=== PATIENT | female | born 1960 | race Caucasian/White ===

== ENCOUNTER 2016-08-17 15:15 | Inpatient (IN) | payer BC, OTHER ==
[~2016-08-17] VITALS: Ht 167.6 cm; Wt 72.4 kg
[2016-08-17 15:17] VITALS: BP 160/92; PULSE 88; RESP 20; TEMP 98; O2SAT 97
[2016-08-17] MEDS ORDERED: PROT40TA PO (15:37)
[2016-08-17] MEDS ORDERED: DICL1CAP4 PO (15:37)
[2016-08-17] MEDS ORDERED: MULTTAB67 PO (15:37)
[2016-08-17] MEDS ORDERED: [UNRECOGNIZED DRUG - REMARK] (15:37)
[2016-08-17] MEDS ORDERED: MORPHINE SULFATE 4 MG/ML INJ IV PUSH ONE (15:45)
[2016-08-17] MEDS ORDERED: KETOROLAC TROMETHAMINE 30 MG/ML (IVP) VIAL IV PUSH ONE (15:45)
[2016-08-17] MEDS ORDERED: CLINDAMYCIN INJ 600 MG in SODIUM CHLORIDE 0.9% INJ 100 ML IV ONE (15:45)
[2016-08-17] MEDS ORDERED: SULFAMETHOXAZOLE-TRIMETHOPRIM DS 800-160 MG TAB PO ONE (15:45)
[2016-08-17] MEDS ORDERED: ONDANSETRON HCL 4 MG/2 ML VIAL IV PUSH ONE (15:45)
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
[2016-08-17 15:56] VITALS: BP 142/76; PULSE 80; RESP 18; O2SAT 100
--- NOTE | 2016-08-17 16:17 | RADRPT ---
EXAM DATE/TIME: 08/17/2016 15:56 [facility] COMPARISON: No previous studies available for comparison. INDICATIONS : Left thumb pain from cat bit. MEDICAL HISTORY : None. SURGICAL HISTORY : None. ENCOUNTER: Initial ACUITY: 2 days PAIN SCORE: 5/10 LOCATION: Bilateral proximal left thumb. FINDINGS: Examination of the first digit of the left hand demonstrates no evidence of fracture or dislocation. No radiopaque foreign bodies are seen. The soft tissues are intact. CONCLUSION: Negative exam. Deejay Edmonds MD on August 17, 2016 at 16:15 Board Certified Radiologist. This report was verified electronically.
[2016-08-17 16:45] LABS: AUTOMATED NEUTROPHIL # 5.1 TH/MM3 (1.8-7.7); BASOPHIL % 0.2 % (0.0-2.0); EOSINOPHIL # 0.1 TH/MM3 (0-0.4); HEMO FLAGS DIFF FINAL; LYMPH % 30.1 % (9.0-44.0); LYMPHOCYTE # 2.5 TH/MM3 (1.0-4.8); MEAN CORPUSCULAR HEMOGLOBIN 30.7 PG (27.0-34.0); MEAN CORPUSCULAR HGB CONC 34.9 % (32.0-36.0); MONO % 6.2 % (0.0-8.0); NEUT % 62.5 % (16.0-70.0); PLATELET COUNT 230 TH/MM3 (150-450); RED BLOOD COUNT 4.09 MIL/MM3 (4.00-5.30); RED CELL DISTRIBUTION WIDTH 14.3 % (11.6-17.2); WHITE BLOOD COUNT 8.2 TH/MM3 (4.0-11.0)
[2016-08-17 17:08] LABS: BICARBONATE 24.7 MEQ/L (21.0-32.0); POTASSIUM 3.7 MEQ/L (3.5-5.1)
[2016-08-17] MEDS ORDERED: BUSP1TAB PO (17:09)
[2016-08-17] MEDS ORDERED: ESTR0.5T PO (17:18)
[2016-08-17] MEDS ORDERED: TEMAZEPAM 15 MG CAP PO PRN (17:30)
[2016-08-17] MEDS ORDERED: NALOXONE HCL 0.4 MG/ML AMP IV PRN (17:30)
[2016-08-17] MEDS ORDERED: ONDANSETRON HCL 4 MG/2 ML VIAL IVP PRN (17:30)
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
[2016-08-17] MEDS: LACTATED RINGER'S 1000 ML INJ 1,000 ML IV SCH (18:17)
[2016-08-17] MEDS: HEPARIN SODIUM - SQ 10,000 UNITS/ML VIAL SQ SCH (18:20)
[2016-08-17 18:23] VITALS: BP 156/81; PULSE 68; RESP 18; O2SAT 95
[2016-08-17 18:26] VITALS: BP 130/65; PULSE 67; RESP 18; O2SAT 100
[2016-08-17 19:25] VITALS: BP 111/65; PULSE 73; RESP 19; TEMP 98.2; O2SAT 98
[2016-08-17] MEDS: busPIRone HCL 5 MG TAB PO SCH (20:53)
[2016-08-17] MEDS: MORPHINE SULFATE 4 MG/ML INJ IV PUSH PRN (20:55)
[2016-08-17 23:34] VITALS: BP 94/50; PULSE 71; RESP 19; TEMP 98.2; O2SAT 96
[2016-08-18] MEDS: CLINDAMYCIN INJ 600 MG in SODIUM CHLORIDE 0.9% INJ 100 ML IV SCH ×3 (00:10→16:25)
--- NOTE | 2016-08-18 00:19 | PD.CONS ---
HPI Service [facility] Consult Requested By Primary Care Physician Juliana Barnes M.D. Admission Diagnosis tenosynovitis left thumb, cellulitis, infected cat bite Diagnoses: History of Present Illness 55yF cat bites to bilateral thumbs, improving since admission. Left thumb worse than right. Patient LHD Past Family Social History Allergies: Coded Allergies: Penicillin (Verified Allergy, Severe, 08/17/16) Active Ordered Medications Current Medications Medications (Trade) Dose Ordered Sig/Cain Route Start Time Stop Time Status Last Admin (Lr 1000 ml Inj) 1,000 ml @ 70 mls/hr [id number] IV 08/17/16 18:00 08/17/16 18:17 (Zofran Inj) 4 mg Q6H PRN IVP 08/17/16 17:30 (Restoril) 15 mg HS PRN PO 08/17/16 17:30 (Heparin Inj) 5,000 units Q12H SQ 08/17/16 18:00 08/17/16 18:20 Naloxone HCl 0.4 mg 0.4 mg UNSCH PRN IV 08/17/16 17:30 (Cleocin Inj/NS Inj) 104 ml @ 208 mls/hr Q8H IV 08/18/16 00:00 08/18/16 00:10 (Morphine Inj) 4 mg Q3H PRN IV PUSH 08/17/16 17:30 08/17/16 20:55 (Buspar) 7.5 mg HS PO 08/17/16 21:00 08/17/16 20:53 (Protonix) 40 mg DAILY PO 08/18/16 09:00 Patient Own Medication PT OWN MED: (Diclofe... DAILY PO 08/18/16 09:00 Future Hold Reported Meds & Active Scripts Active Reported Estradiol 0.5 Mg Tab 0.5 Mg PO DAILY Buspirone (Buspirone HCl) 7.5 Mg Tab 7.5 Mg PO HS [hormone pills] Zorvolex (Diclofenac) 35 Mg Cap 35 Mg PO DAILY Multiple Vitamin 1 Tab 1 Tab PO DAILY Protonix (Pantoprazole Sodium) 40 Mg Tab 40 Mg PO DAILY Physical Exam Vital Signs Vital Signs Date Time Temp Pulse Resp B/P Pulse Ox O2 Delivery O2 Flow Rate FiO2 08/17/16 23:34 98.2 71 19 94/50 96 08/17/16 19:25 98.2 73 19 111/65 98 08/17/16 18:26 67 18 130/65 100 Room Air 08/17/16 15:56 80 18 142/76 100 Room Air 08/17/16 15:39 18 08/17/16 15:17 98.0 88 20 160/92 97 Room Air Laboratory Laboratory Tests Test 08/17/16 15:45 White Blood Count 8.2 Red Blood Count 4.09 Hemoglobin 12.6 Hematocrit 36.0 Mean Corpuscular Volume 88.0 Mean Corpuscular Hemoglobin 30.7 Mean Corpuscular Hemoglobin 34.9 Concent Red Cell Distribution Width 14.3 Platelet Count 230 Mean Platelet Volume 8.0 Neutrophils (%) (Auto) 62.5 Lymphocytes (%) (Auto) 30.1 Monocytes (%) (Auto) 6.2 Eosinophils (%) (Auto) 1.0 Basophils (%) (Auto) 0.2 Neutrophils # (Auto) 5.1 Lymphocytes # (Auto) 2.5 Monocytes # (Auto) 0.5 Eosinophils # (Auto) 0.1 Basophils # (Auto) 0.0 CBC Comment DIFF FINAL Differential Comment Sodium Level 139 Potassium Level 3.7 Chloride Level 105 Carbon Dioxide Level 24.7 Anion Gap 9 Blood Urea Nitrogen 13 Creatinine 0.84 Estimat Glomerular Filtration 71 Rate Random Glucose 93 Calcium Level 8.7 Date/Time Procedure Status Source Growth 08/17/16 15:54 Aerobic Blood Culture Received Blood Peripheral Pending 08/17/16 15:54 Anaerobic Blood Culture Received Blood Peripheral Pending Result Diagram: 08/17/16 1545 08/17/16 1545 Assessment & Plan Assessment and Plan 55yF cat bite bilateral thumbs, see dictated consult note for full details -Recommend admission for IV Ab, close followup -May require I&D tomorrow if symptoms worsen, at this time no sign of flexor or extensor tenosynovitis Mei Wilde MD Aug 18, 2016 00:19
[2016-08-18 03:40] VITALS: BP 109/60; PULSE 68; RESP 19; TEMP 98; O2SAT 96
--- NOTE | 2016-08-18 04:16 | MB ---
cc: MEI WILDE DATE OF CONSULTATION: 08/17/2016 REASON FOR CONSULTATION Cat bite bilateral thumbs. HISTORY OF PRESENT ILLNESS Selena Blackwell is a pleasant bit 55-year-old left-hand dominant female who was bitten by her cat yesterday on both the distal phalanx of the right thumb and the middle phalanx of the left thumb. The patient had to come for her cat and presented to the urgent care earlier today where she was transferred to the emergency room. I was called for difficulty flexing the finger. At the time of evaluation, the patient reports significant improvement since earlier today. She has been started on IV antibiotics. She denies any paresthesias on either hand. She does have erythema over the left thumb. She denies any prior history of problems with either hand. PAST MEDICAL HISTORY Osteoarthritis, GERD, anxiety. PAST SURGICAL HISTORY: Mastoidectomy, tonsillectomy, . MEDICATIONS 1. Estradiol 2. Buspirone. 3. Protonix. ALLERGIES Penicillin. PHYSICAL EXAMINATION GENERAL: The patient is alert and oriented. VITAL SIGNS: Temperature is 98. Extremities: The right hand shows one puncture wound over the volar aspect of the right thumb. The patient has full range of motion of the right thumb with minimal pain, no significant erythema. Sensation intact in the radial and ulnar side. Less than two second capillary refill. Examination of the left thumb shows mild to moderate erythema over the left thumb. No tenderness along the flexor tendon sheath. There are multiple cat bites over the dorsal and volar aspect of the thumb. The patient is able to flex and extend the thumb without significant difficulty at both IP and MP joints. Sensation is intact on the radial ulnar side. Less than two second capillary refill. LABORATORY DATA: Labs show white count 8.2. X-RAYS X-ray of the hand shows no evidence of fracture-dislocation. ASSESSMENT/PLAN The patient is a 55-year-old healthy female with a cat bite to bilateral thumbs left worse than right. At this time the patient has good range of motion. I recommend admission for IV antibiotics and observation. She may require surgical debridement. Will continue to follow on the IV antibiotics. Mei Wilde MD /CORY /12:15 AM /4:02 AM MTDD
[2016-08-18] MEDS: HEPARIN SODIUM - SQ 10,000 UNITS/ML VIAL SQ SCH ×2 (05:40→17:16)
[2016-08-18] MEDS: MORPHINE SULFATE 4 MG/ML INJ IV PUSH PRN ×2 (06:12→10:21)
[2016-08-18 07:41] VITALS: BP 117/67; PULSE 67; RESP 18; TEMP 98.4; O2SAT 99
--- NOTE | 2016-08-18 08:17 | HHI.PR ---
Subjective Subjective Remarks left thumb swelling present, slightly improved, some erythema able to flex thumb, pain over volar surface no fever c/o headache no cp no sob has been NPO Review of Systems Constitutional Constitutional Remarks 12 point ROS completed, negative except as noted above Vitals/Results Vital Signs Vital Signs Date Time Temp Pulse Resp B/P Pulse Ox O2 Delivery O2 Flow Rate FiO2 08/18/16 07:41 98.4 67 18 117/67 99 08/18/16 03:40 98.0 68 19 109/60 96 08/17/16 23:34 98.2 71 19 94/50 96 08/17/16 19:25 98.2 73 19 111/65 98 08/17/16 18:26 67 18 130/65 100 Room Air 08/17/16 15:56 80 18 142/76 100 Room Air 08/17/16 15:39 18 08/17/16 15:17 98.0 88 20 160/92 97 Room Air CBC/BMP: 08/17/16 1545 08/17/16 1545 Lab Results Laboratory Tests Test 08/17/16 15:45 White Blood Count 8.2 TH/MM3 Red Blood Count 4.09 MIL/MM3 Hemoglobin 12.6 GM/DL Hematocrit 36.0 % Mean Corpuscular Volume 88.0 FL Mean Corpuscular Hemoglobin 30.7 PG Mean Corpuscular Hemoglobin 34.9 % Concent Red Cell Distribution Width 14.3 % Platelet Count 230 TH/MM3 Mean Platelet Volume 8.0 FL Neutrophils (%) (Auto) 62.5 % Lymphocytes (%) (Auto) 30.1 % Monocytes (%) (Auto) 6.2 % Eosinophils (%) (Auto) 1.0 % Basophils (%) (Auto) 0.2 % Neutrophils # (Auto) 5.1 TH/MM3 Lymphocytes # (Auto) 2.5 TH/MM3 Monocytes # (Auto) 0.5 TH/MM3 Eosinophils # (Auto) 0.1 TH/MM3 Basophils # (Auto) 0.0 TH/MM3 CBC Comment DIFF FINAL Differential Comment Sodium Level 139 MEQ/L Potassium Level 3.7 MEQ/L Chloride Level 105 MEQ/L Carbon Dioxide Level 24.7 MEQ/L Anion Gap 9 MEQ/L Blood Urea Nitrogen 13 MG/DL Creatinine 0.84 MG/DL Estimat Glomerular Filtration 71 ML/MIN Rate Random Glucose 93 MG/DL Calcium Level 8.7 MG/DL Microbiology Microbiology 08/17/16 Aerobic Blood Culture, Received Pending 08/17/16 Anaerobic Blood Culture, Received Pending 08/17/16 Aerobic Blood Culture, Received Pending 08/17/16 Anaerobic Blood Culture, Received Pending Physical Exam General General Appearance: Well Developed, Well Nourished, No Acute Distress, Comfortable Ears & Nose Ears & Nose Exam: Nasal Mucosa [place] Throat Throat Exam: Oral Mucosa [place] & Moist Neck Neck Exam: Neck Supple, Trachea Midline Pulmonary Resp Exam: Clear Bilaterally, No Distress Cardiology CV Exam: Regular, Good Perfusion Gastrointestinal/Abdomen GI Exam: Soft, Non-Tender, Bowel Sounds Present, Non-Distended Musculoskeletal MS Remarks left thumb swelling, redness, puncture wounds to volar and palmar surface puncture wound right thumb, minimally red Integumentary Skin Exam: Warm, Dry Extremeties Extremities Exam: No Edema, Pedal Pulses Palpable Neurologic Neuro Exam: Alert, Awake, Oriented, Speech Clear, Moving All Extremities, No Focal Deficits Psychiatric Psych Exam: Appropriate Responses VTE Prophylaxis VTE Prophylaxis Device: SCDs Assessment/Plan Problem List: (1) Cellulitis (2) Tenosynovitis (3) Cat bite of finger (4) Anxiety Assessment/Plan 55 year old female presented to ED with cat bit to left and right thumb yesterday, today has increased pain, swelling and decrease ROM. Admitted for cellulitis, possible tenosynovitis. -Continue antibiotics -Dr. Wilde has been consulted, recommends to keep NPO and possible I/D today -Pain management -Keep left hand elevated -Continue IVF -Monitor WBC, cultures Anxiety, on Buspar -Continue with Buspar SCDs for DVT prophylaxis continue with present treatment for possible surgery today, f/u after procedure D/W RN D/W pt D/W Dr. Snider This patient was seen by myself and Dr. Snider, this note is written on his behalf. Problem Qualifiers (1) Cellulitis: Qualified Code: L03.012 - Cellulitis of finger of left hand (2) Cat bite of finger: Qualified Code: S61.259A - Cat bite of finger, initial encounter Tatiana Rolle Aug 18, 2016 08:17
[2016-08-18 08:25] LABS: BICARBONATE 25.8 MEQ/L (21.0-32.0); POTASSIUM 4.3 MEQ/L (3.5-5.1)
[2016-08-18 08:32] LABS: AUTOMATED NEUTROPHIL # 2.3 TH/MM3 (1.8-7.7); BASOPHIL % 0.3 % (0.0-2.0); EOSINOPHIL # 0.1 TH/MM3 (0-0.4); EOSINOPHIL % 2.5 % (0.0-4.0); HEMATOCRIT 36.2 % (35.0-46.0); HEMO FLAGS DIFF FINAL; LYMPH % 43.9 % (9.0-44.0); LYMPHOCYTE # 2.1 TH/MM3 (1.0-4.8); MEAN CELL VOLUME 89.8 FL (80.0-100.0); MEAN CORPUSCULAR HGB CONC 34.5 % (32.0-36.0); MONO % 6.5 % (0.0-8.0); NEUT % 46.8 % (16.0-70.0); PLATELET COUNT 203 TH/MM3 (150-450); RED BLOOD COUNT 4.03 MIL/MM3 (4.00-5.30); RED CELL DISTRIBUTION WIDTH 14.5 % (11.6-17.2); WHITE BLOOD COUNT 4.9 TH/MM3 (4.0-11.0)
[2016-08-18] MEDS ORDERED: DICLOFENAC 35 MG PO SCH (09:00)
[2016-08-18] MEDS: PANTOPRAZOLE SOD 40 MG DELAYED RELEASE TAB PO SCH (09:00)
[2016-08-18 09:07] LABS: WESTERGREN SEDIMENTATION RATE 9 mm/hr (0-30)
[2016-08-18] MEDS: LACTATED RINGER'S 1000 ML INJ 1,000 ML IV SCH (10:37)
[2016-08-18 13:23] VITALS: BP 135/79; PULSE 77; RESP 18; TEMP 98; O2SAT 100
[2016-08-18 16:00] VITALS: BP 136/69; PULSE 75; RESP 18; TEMP 95.8; O2SAT 100
[2016-08-18] MEDS ORDERED: MAGNESIUM CITRATE SOLN 300 ML BTL PO ONE (16:45)
[2016-08-18] MEDS ORDERED: MAGNESIUM HYDROXIDE SUSP 30 ML CUP PO PRN (17:00)
[2016-08-18 20:00] VITALS: BP 126/80; PULSE 80; RESP 20; TEMP 98.2; O2SAT 96
--- NOTE | 2016-08-18 20:18 | PD.ORT.PN ---
Subjective Subjective Remarks Patient reports improving pain bilateral thumbs. Denies paresthesias. Reports headache. Objective Vitals Vital Signs Date Time Temp Pulse Resp B/P Pulse Ox O2 Delivery O2 Flow Rate FiO2 08/18/16 16:00 95.8 75 18 136/69 100 08/18/16 13:23 98.0 77 18 135/79 100 08/18/16 10:26 20 08/18/16 07:41 98.4 67 18 117/67 99 08/18/16 03:40 98.0 68 19 109/60 96 08/17/16 23:34 98.2 71 19 94/50 96 Result Diagram: 08/18/16 0730 08/18/16 0730 Objective Remarks mild erythema bilateral thumbs. minimal pain with passive ROM bilateral thumbs. able to actively extend and flex thumbs at IP and MP joints. minimal pain along flexor tendon sheaths. sitlt m/u/r, <2 sec capillary refill Assessment & Plan Assessment and Plan 55yF cat bite bilateral thumbs with improvement on IV Ab -ESR 9, CRP 0.58 both minimally elevated -Recommend regular diet, NPO at midnight, continued observation on IV Ab, possible dc on oral Ab in next several days -No indication for surgical intervention at this time but will continue to follow closely Mei Wilde MD Aug 18, 2016 20:18
[2016-08-18] MEDS: busPIRone HCL 5 MG TAB PO SCH (21:09)
[2016-08-18] MEDS: ACETAMINOPHEN 325 MG TAB PO PRN (22:38)
[2016-08-19] VITALS: BP 102/63; PULSE 67; RESP 20; TEMP 97.4; O2SAT 96
[2016-08-19] MEDS: HEPARIN SODIUM - SQ 10,000 UNITS/ML VIAL SQ SCH ×2 (06:14→15:47)
[2016-08-19] MEDS: ACETAMINOPHEN 325 MG TAB PO PRN ×2 (06:15→14:07)
[2016-08-19 08:00] VITALS: BP 134/74; PULSE 69; RESP 16; TEMP 97.1; O2SAT 99
[2016-08-19] MEDS: CLINDAMYCIN INJ 600 MG in SODIUM CHLORIDE 0.9% INJ 100 ML IV SCH ×4 (08:12→15:45)
[2016-08-19] MEDS: PANTOPRAZOLE SOD 40 MG DELAYED RELEASE TAB PO SCH (08:12)
--- NOTE | 2016-08-19 10:52 | HHI.PR ---
Subjective Interval History Alert, oriented, feeling much better, much less swelling in her hands Review of Systems Allergic/Immunologic Allergic/Immunologic/Remarks Very mild hand pain bilaterally, 10 systems reviewed and otherwise negative Vitals/Results Intake & Output 08/18/16 08/18/16 08/19/16 15:00 23:00 07:00 Intake Total 604 ml 908 ml Balance 604 ml 908 ml Intake Oral 240 ml 240 ml IV Total 364 ml 668 ml # Voids 1 3 # Bowel Movements 0 0 Vital Signs Vital Signs Date Time Temp Pulse Resp B/P Pulse Ox O2 Delivery O2 Flow Rate FiO2 08/19/16 08:00 97.1 69 16 134/74 99 08/19/16 00:00 97.4 67 20 102/63 96 08/18/16 20:00 98.2 80 20 126/80 96 08/18/16 16:00 95.8 75 18 136/69 100 08/18/16 13:23 98.0 77 18 135/79 100 CBC/BMP: 08/18/16 0730 08/18/16 0730 Physical Exam General General Appearance: Well Developed, Well Nourished, No Acute Distress, Comfortable Ears & Nose Ears & Nose Exam: Nasal Mucosa [place] Throat Throat Exam: Oral Mucosa [place] & Moist Neck Neck Exam: Neck Supple, Trachea Midline Pulmonary Resp Exam: Clear Bilaterally, No Distress Cardiology CV Exam: Regular, Good Perfusion Gastrointestinal/Abdomen GI Exam: Soft, Non-Tender, Bowel Sounds Present, Non-Distended Integumentary Skin Exam: Warm, Dry Extremeties Extremities Exam: No Edema, Pedal Pulses Palpable Neurologic Neuro Exam: Alert, Awake, Oriented, Speech Clear, Moving All Extremities, No Focal Deficits Psychiatric Psych Exam: Appropriate Responses VTE Prophylaxis VTE Prophylaxis Device: SCDs Assessment/Plan Problem List: (1) Cellulitis (2) Tenosynovitis (3) Cat bite of finger (4) Anxiety Assessment/Plan assessment Bilateral thumb cellulitis Looking better today History of Bite Management Continue antibiotics Hand surgery following Possible discharge tomorrow Discussed with patient Discussed with nurse Problem Qualifiers (1) Cellulitis: Qualified Code: L03.012 - Cellulitis of finger of left hand (2) Cat bite of finger: Qualified Code: S61.259A - Cat bite of finger, initial encounter Thanh Snider MD Aug 19, 2016 10:51
[2016-08-19 12:00] VITALS: BP 127/87; PULSE 75; RESP 17; TEMP 98.3; O2SAT 98
[2016-08-19] MEDS ORDERED: NORC5TAB PO (14:52)
[2016-08-19] MEDS: LACTATED RINGER'S 1000 ML INJ 1,000 ML IV SCH ×2 (15:47)
[2016-08-19 16:00] VITALS: BP 133/84; PULSE 80; RESP 16; TEMP 97.1; O2SAT 99
[2016-08-19 20:00] VITALS: BP 127/80; PULSE 69; RESP 20; TEMP 97.2; O2SAT 97
[2016-08-19] MEDS: busPIRone HCL 5 MG TAB PO SCH (22:29)
--- NOTE | 2016-08-19 22:56 | PD.ORT.PN ---
Subjective Subjective Remarks Patient reports minimal pain bilateral thumbs. Denies paresthesias. Objective Vitals Vital Signs Date Time Temp Pulse Resp B/P Pulse Ox O2 Delivery O2 Flow Rate FiO2 08/19/16 20:00 97.2 69 20 127/80 97 08/19/16 16:00 97.1 80 16 133/84 99 08/19/16 12:00 98.3 75 17 127/87 98 08/19/16 08:00 97.1 69 16 134/74 99 08/19/16 00:00 97.4 67 20 102/63 96 I/O 08/18/16 08/18/16 08/18/16 08/19/16 08/19/16 08/19/16 07:00 15:00 23:00 07:00 15:00 23:00 Intake Total 604 ml 908 ml 440 ml 720 ml Balance 604 ml 908 ml 440 ml 720 ml Intake Oral 240 ml 240 ml 0 ml 720 ml IV Total 364 ml 668 ml 440 ml # Voids 1 3 4 2 # Bowel Movements 0 0 1 Result Diagram: 08/18/16 0730 08/18/16 0730 Objective Remarks mild erythema bilateral thumbs. minimal pain with passive ROM bilateral thumbs. able to actively extend and flex thumbs at IP and MP joints. no pain along flexor tendon sheaths. sitlt m/u/r, <2 sec capillary refill Assessment & Plan Assessment and Plan 55yF cat bite bilateral thumbs with improvement on IV Ab -No indication for surgical intervention at this time -Recommend patient stay overnight for IV Ab then likely discharge in AM on on oral Augmentin -Followup in [facility] 08/22/16, Mei Wilde MD Aug 19, 2016 22:56
[2016-08-20] VITALS: BP 105/57; PULSE 75; RESP 20; TEMP 97.7; O2SAT 97
[2016-08-20] MEDS: CLINDAMYCIN INJ 600 MG in SODIUM CHLORIDE 0.9% INJ 100 ML IV SCH ×2 (00:17→09:50)
[2016-08-20] MEDS: LACTATED RINGER'S 1000 ML INJ 1,000 ML IV SCH (05:33)
[2016-08-20] MEDS: HEPARIN SODIUM - SQ 10,000 UNITS/ML VIAL SQ SCH (06:00)
[2016-08-20 08:00] VITALS: BP 126/62; PULSE 78; RESP 16; TEMP 98.4; O2SAT 96
[2016-08-20] MEDS: PANTOPRAZOLE SOD 40 MG DELAYED RELEASE TAB PO SCH (09:50)
[2016-08-20 12:00] VITALS: BP 130/72; PULSE 97; RESP 16; TEMP 96.2; O2SAT 96
[2016-08-20] MEDS ORDERED: CLIN1CAP6 PO (14:13)
--- NOTE | 2016-08-20 22:35 | HHI.PR ---
Subjective Interval History Alert, oriented, feeling much better, little pain in her hands, swelling has resolved Review of Systems Constitutional Constitutional Remarks 10 systems reviewed and otherwise negative Allergic/Immunologic Allergic/Immunologic/Remarks Very mild hand pain bilaterally, 10 systems reviewed and otherwise negative Vitals/Results Intake & Output 08/19/16 08/19/16 08/20/16 15:00 23:00 07:00 Intake Total 440 ml 720 ml 1038 ml Output Total 1800 ml Balance 440 ml 720 ml -762 ml Intake Oral 0 ml 720 ml 480 ml IV Total 440 ml 558 ml Output Urine Total 1800 ml # Voids 4 2 # Bowel Movements 1 Vital Signs Vital Signs Date Time Temp Pulse Resp B/P Pulse Ox O2 Delivery O2 Flow Rate FiO2 08/20/16 12:00 96.2 97 16 130/72 96 08/20/16 08:00 98.4 78 16 126/62 96 08/20/16 00:00 97.7 75 20 105/57 97 CBC/BMP: 08/18/16 0730 08/18/16 0730 Physical Exam General General Appearance: Well Developed, Well Nourished, No Acute Distress, Comfortable Ears & Nose Ears & Nose Exam: Nasal Mucosa [place] Throat Throat Exam: Oral Mucosa [place] & Moist Neck Neck Exam: Neck Supple, Trachea Midline Pulmonary Resp Exam: Clear Bilaterally, No Distress Cardiology CV Exam: Regular, Good Perfusion Gastrointestinal/Abdomen GI Exam: Soft, Non-Tender, Bowel Sounds Present, Non-Distended Integumentary Skin Exam: Warm, Dry Skin Remarks Minor residual teeth jeana on her hands especially both thumbs from Bite, cellulitis, mostly resolved Extremeties Extremities Exam: No Edema, Pedal Pulses Palpable Neurologic Neuro Exam: Alert, Awake, Oriented, Speech Clear, Moving All Extremities, No Focal Deficits Psychiatric Psych Exam: Appropriate Responses VTE Prophylaxis VTE Prophylaxis Device: SCDs Assessment/Plan Problem List: (1) Cellulitis (2) Tenosynovitis (3) Cat bite of finger (4) Anxiety Assessment/Plan assessment Bilateral thumb cellulitis Looking better today, Almost resolved History of cat Bite Management Continue antibiotics By mouth Hand surgery following discharge Home today Discussed with patient Discussed with nurse Problem Qualifiers (1) Cellulitis: Qualified Code: L03.012 - Cellulitis of finger of left hand (2) Cat bite of finger: Qualified Code: S61.259A - Cat bite of finger, initial encounter Thanh Snider MD Aug 20, 2016 22:35
--- NOTE | 2016-09-20 18:08 | HHI.DS ---
Discharge Summary Admission Date Aug 17, 2016 at 17:23 Discharge Date: Aug 20, 2016 Admitting Diagnosis tenosynovitis left thumb, cellulitis, infected cat bite (1) Cellulitis Diagnosis: Principal (2) Tenosynovitis Diagnosis: Principal (3) Cat bite of finger Diagnosis: Principal (4) Anxiety Diagnosis: Secondary Brief History This was a 55-year-old female that presents to the ED for evaluation of cat bite. Day before admission, the patient she was trying to comfort her cat who unfortunately she hit her car and was dying. The cat apparently got very upset and bit her on her right and left thumb. Per patient the cat clamped down on the left thumb and she did not let go for at least a couple of minutes until she was able to get them out out. Per patient she didn't really have much discomfort but overnight she noticed that she was having more pain when she moved. Day of admission, she noted swelling and was having difficulty with flexion of the left thumb. She could not flex at the PIP level but it has improved since she arrived here. She did have bite guzman to both thumbs with erythema. Patient stated that she was seen at the urgent care and was given a tetanus booster and told to come here for evaluation. She did have an allergy to penicillin. She was not concerned for rabies as this was her own cat. Imaging Last Impressions Finger X-Ray 08/17/16 0000 Signed Impressions: Service Date/Time: Wednesday, August 17, 2016 15:56 - CONCLUSION: Negative exam. Deejay Edmonds MD PE at Discharge General Appearance: Well Developed, Well Nourished, No Acute Distress, Comfortable Ears & Nose Ears & Nose Exam: Nasal Mucosa [place] Throat Throat Exam: Oral Mucosa [place] & Moist Neck Neck Exam: Neck Supple, Trachea Midline Pulmonary Resp Exam: Clear Bilaterally, No Distress Cardiology CV Exam: Regular, Good Perfusion Gastrointestinal/Abdomen GI Exam: Soft, Non-Tender, Bowel Sounds Present, Non-Distended Integumentary Skin Exam: Warm, Dry Skin Remarks Minor residual teeth jeana on her hands especially both thumbs from Bite, cellulitis, mostly resolved Extremeties Extremities Exam: No Edema, Pedal Pulses Palpable Neurologic Neuro Exam: Alert, Awake, Oriented, Speech Clear, Moving All Extremities, No Focal Deficits Psychiatric Psych Exam: Appropriate Responses VTE Prophylaxis VTE Prophylaxis Device: SCDs Hospital Course Pt. was evaluated in the ED, was started on antibiotics, Clindamycin and PO Bactrim due to PCN allergy. Dr. Wilde was consulted and evaluated pt. Pt NPO for possible surgical procedure later today. Pt. is comfortable, she received Morphine and her pain is down. She was in relative good health, no history of CAD, DM, HTN. Laboratory work up is unremarkable. Xray of finger is normal. Pt. was admitted for further evaluation and treatment. These are the diagnosis used for this visit. (1) Cellulitis (2) Tenosynovitis (3) Cat bite of finger (4) Anxiety -Continue antibiotics clindamycin ordered on admission -Dr. Wilde has been consulted, recommends to keep NPO and possible I/D today Orders on admission, -Pain management -Keep left hand elevated -Continue IVF for hydration -Monitor WBC, cultures Anxiety, on Buspar -Continue with Busparthroughout stay SCDs for DVT prophylaxis continue with present treatment After seeing Dr. Wilde, patient was stablized and discharged to follow up in his office. Continue antibiotics By mouth Hand surgery following her discharge. discharge Home today stable Discussed with patient plan of care Discussed with nurse caring for patient Pt Condition on Discharge: Stable Discharge Disposition: Discharge Home Discharge Instructions DIET: Follow Instructions for: As Tolerated, No Restrictions Activities you can perform: Regular-No Restrictions Follow up Referrals: Hand Surgery - 2 Days with Mei Wilde MD New Medications: Clindamycin (Clindamycin) 300 Mg Cap 600 MG PO Q8H Infection #15 Ref 0 CAP Hydrocodone-Acetaminophen ([place]) 5-325 mg Tab 1 TAB PO Q4H PRN PAIN #20 Ref 0 TAB Continued Medications: Buspirone (Buspirone) 7.5 Mg Tab 7.5 MG PO HS Anxiety Ref 0 TAB Diclofenac (Zorvolex) 35 Mg Cap 35 MG PO DAILY Pain Management Ref 0 CAP Estradiol (Estradiol) 0.5 Mg Tab 0.5 MG PO DAILY Estrogen Supplements #30 Ref 0 TAB Multiple Vitamin (Multiple Vitamin) 1 Tab 1 TAB PO DAILY Nutritional Supplement Ref 0 TAB Pantoprazole (Protonix) 40 Mg Tab 40 MG PO DAILY Reflux #30 Ref 0 TAB ([hormone pills]) Lyla Frazier Sep 20, 2016 18:08
--- NOTE | 2016-09-20 18:08 | HHI.DS ---
Discharge Summary Admission Date Aug 17, 2016 at 17:23 Admitting Diagnosis tenosynovitis left thumb, cellulitis, infected cat bite (1) Cellulitis Diagnosis: Principal (2) Tenosynovitis Diagnosis: Principal (3) Cat bite of finger Diagnosis: Principal (4) Anxiety Diagnosis: Secondary Brief History This was a 55-year-old female that presents to the ED for evaluation of cat bite. Day before admission, the patient she was trying to comfort her cat who unfortunately she hit her car and was dying. The cat apparently got very upset and bit her on her right and left thumb. Per patient the cat clamped down on the left thumb and she did not let go for at least a couple of minutes until she was able to get them out out. Per patient she didn't really have much discomfort but overnight she noticed that she was having more pain when she moved. Day of admission, she noted swelling and was having difficulty with flexion of the left thumb. She could not flex at the PIP level but it has improved since she arrived here. She did have bite guzman to both thumbs with erythema. Patient stated that she was seen at the urgent care and was given a tetanus booster and told to come here for evaluation. She did have an allergy to penicillin. She was not concerned for rabies as this was her own cat. Imaging Last Impressions Finger X-Ray 08/17/16 0000 Signed Impressions: Service Date/Time: Wednesday, August 17, 2016 15:56 - CONCLUSION: Negative exam. Deejay Edmonds MD Pt Condition on Discharge: Stable Discharge Disposition: Discharge Home Discharge Instructions DIET: Follow Instructions for: As Tolerated, No Restrictions Activities you can perform: Regular-No Restrictions Follow up Referrals: Hand Surgery - 2 Days with Mei Wilde MD New Medications: Clindamycin (Clindamycin) 300 Mg Cap 600 MG PO Q8H Infection #15 Ref 0 CAP Hydrocodone-Acetaminophen ([place]) 5-325 mg Tab 1 TAB PO Q4H PRN PAIN #20 Ref 0 TAB Continued Medications: Buspirone (Buspirone) 7.5 Mg Tab 7.5 MG PO HS Anxiety Ref 0 TAB Diclofenac (Zorvolex) 35 Mg Cap 35 MG PO DAILY Pain Management Ref 0 CAP Estradiol (Estradiol) 0.5 Mg Tab 0.5 MG PO DAILY Estrogen Supplements #30 Ref 0 TAB Multiple Vitamin (Multiple Vitamin) 1 Tab 1 TAB PO DAILY Nutritional Supplement Ref 0 TAB Pantoprazole (Protonix) 40 Mg Tab 40 MG PO DAILY Reflux #30 Ref 0 TAB ([hormone pills]) Lyla Frazier Sep 20, 2016 18:08
== END 2016-08-20 15:03 | disposition home or self-care (01) | DRG 603 ==
LOC: NEPC 15:15 → NEDA 17:18 → OBSVTOIN 17:23 → NEPFCDU 19:25 → N07B 08-18 16:25
PROVIDERS: ADMIT Specialist; ATTEND Specialist
DX: L03.011 Cellulitis of right finger (principal); F41.9 Anxiety disorder, unspecified; L03.012 Cellulitis of left finger; K21.9 Gastro-esophageal reflux disease without esophagitis; M65.9 Synovitis and tenosynovitis, unspecified; W55.01XA Bitten by cat, initial encounter; Y92.9 Unspecified place or not applicable; Z87.891 Personal history of nicotine dependence; M19.90 Unspecified osteoarthritis, unspecified site
CPT/HCPCS: 73140; 80048; 85025; 85652; 86140; 87040; 96374; 96375; J1644; J1885; J2270; J2405; J7120

== ENCOUNTER 2016-10-19 16:43 | Emergency (ER) | payer BC ==
[~2016-10-19] VITALS: Ht 167.6 cm; Wt 75.0 kg
[~2016-10-19 16:43] MED LIST: BUSP1TAB PO; CLIN1CAP6 PO; DICL1CAP4 PO; ESTR0.5T PO; MULTTAB67 PO; NORC5TAB PO; PROT40TA PO; [UNRECOGNIZED DRUG - REMARK]
[2016-10-19 16:44] VITALS: BP 141/80; PULSE 94; RESP 16; TEMP 98.2; O2SAT 98
--- NOTE | 2016-10-19 17:53 | PD ---
HPI . left foot pain Chief Complaint: Pain: Acute or Chronic Time Seen by Provider: 17:52 Travel History International Travel<30 days: No Contact w/Intl Traveler<30days: No Traveled to known affect area: No History of Present Illness HPI 56-year-old female with history of GERD, menopause and anxiety here with complaints of left foot pain. Patient was walking outside and stepped on a large piece of plastic that poked her foot. She is complaining of pain to the left midfoot medial aspect foot. She does not think there is any type of retained plastic, however she feels that she may have fractured her foot. She does have significant pain with palpation to the midfoot superficially to the plantar surface. She has no other complaints. She rates pain as 5/10 throbbing in nature without any radiation. With movement and stepping on it as 10/10. She is up-to-date on her tetanus vaccine. PFSH Past Medical History Menopausal: Yes Social History Alcohol Use: No Tobacco Use: No Substance Use: No Allergies-Medications (Allergen,Severity, Reaction): Coded Allergies: Penicillin (Verified Allergy, Severe, 10/19/16) Reported Meds & Prescriptions Reported Meds & Active Scripts Active Reported Estradiol 0.5 Mg Tab 0.5 Mg PO DAILY Buspirone (Buspirone HCl) 7.5 Mg Tab 7.5 Mg PO BID [hormone pills] Zorvolex (Diclofenac) 35 Mg Cap 35 Mg PO DAILY Multiple Vitamin 1 Tab 1 Tab PO DAILY Protonix (Pantoprazole Sodium) 40 Mg Tab 40 Mg PO DAILY Review of Systems General / Constitutional: No: Fever Eyes: No: Visual changes HENT: No: Headaches Cardiovascular: No: Chest Pain or Discomfort Respiratory: No: Shortness of Breath Gastrointestinal: No: Abdominal Pain Genitourinary: No: Dysuria Musculoskeletal: Positive: Pain (left foot pain) Skin: No Rash Neurologic: No: Weakness Psychiatric: No: Depression Endocrine: No: Polydipsia Hematologic/Lymphatic: No: Easy Bruising Physical Exam Narrative GENERAL: AAO x 3, no acute distress, Well-nourished, well-developed patient. SKIN: Warm and dry. No visible rashes or bruising. left plantar aspect of foot; midfoot with small puncture wound that is closed. No surrounding erythema or edema. no palpable masses or visible fb, tender to touch HEAD: Normocephalic and atraumatic. EYES: No scleral icterus. No injection or drainage. ENT: No nasal drainage noted. Mucous membranes pink. Airway patent. NECK: Supple, trachea midline. No JVD. CARDIOVASCULAR: Regular rate and rhythm without murmurs, gallops, or rubs. RESPIRATORY: Breath sounds equal bilaterally. No accessory muscle use. No rhonchi or rales. GASTROINTESTINAL: Abdomen soft, non-tender, nondistended. EXTREMITIES: No cyanosis or edema. BACK: Nontender without obvious deformity. No CVA tenderness. PSYCH: AAO x 3, normal affect. Data Data Last Documented VS Vital Signs Date Time Temp Pulse Resp B/P Pulse Ox O2 Delivery O2 Flow Rate FiO2 10/19/16 16:44 98.2 94 16 141/80 98 Orders Ibuprofen (Motrin) (10/19/16 18:00) Foot, Complete ([id number]) (10/19/16 17:55) [facility] Medical Decision Making Medical Screen Exam Complete: Yes Emergency Medical Condition: Yes Medical Record Reviewed: Yes Differential Diagnosis plantar foot laceration, foot fracture, less likely tendon injury Narrative Course 56-year-old female with history of GERD, menopause and anxiety here with complaints of left foot pain. Patient was walking outside and stepped on a large piece of plastic that poked her foot. She is complaining of pain to the left midfoot medial aspect foot. She does not think there is any type of retained plastic, however she feels that she may have fractured her foot. She does have significant pain with palpation to the midfoot superficially to the plantar surface. She has no other complaints. She rates pain as 5/10 throbbing in nature without any radiation. With movement and stepping on it as 10/10. She is up-to-date on her tetanus vaccine. Patient seen and examined. She does have a small puncture wound to the plantar aspect of the left midfoot. I do not palpate any type of foreign body. It is tender to touch. I will check x-ray to rule out any type of fracture or possible foreign body. xray is still pending [id number] Patient's care will be transitioned to the next provider. They will determine disposition. Referrals: [facility] [employer] Patient Instructions: General Instructions Additional Instructions: Please return to emergency department if your symptoms return or worsen. Follow up with your primary care provider. Take medications as prescribed. Follow up with podiatry. Use Tylenol or Motrin as needed for pain. [place] for worsening signs of infection which include increased redness, increased warmth, purulent drainage, increased swelling or streaking. Condition: Stable Lucy Reilly Oct 19, 2016 17:53 Lucy Reilly Oct 19, 2016 17:53
[2016-10-19] MEDS ORDERED: IBUPROFEN 800 MG TAB PO ONE ×2 (18:00→19:30)
--- NOTE | 2016-10-19 19:24 | PD ---
Physical Exam Date Seen by Provider: Oct 19, 2016 Time Seen by Provider: 19:22 Data Data Last Documented VS Vital Signs Date Time Temp Pulse Resp B/P Pulse Ox O2 Delivery O2 Flow Rate FiO2 10/19/16 16:44 98.2 94 16 141/80 98 Orders Ibuprofen (Motrin) (10/19/16 18:00) Foot, Complete ([id number]) (10/19/16 17:55) Ice/Cold Pack (10/19/16 19:21) Splint Or Brace Apply/Monitor (10/19/16 19:21) Crutches (10/19/16 19:21) Ibuprofen (Motrin) (10/19/16 19:30) MDM Medical Record Reviewed: Yes Supervised Visit with KAMALA: No Interpretation(s) Foot: Negative for fracture. No gross foreign body. Differential Diagnosis MDM: High Differential diagnoses: Fracture, sprain, strain, dislocation, contusion, neurovascular injury Narrative Course X-rays negative for fracture or foreign body. Patient's given Motrin 800 mg by mouth. [place] wrap, crutches, ice pack. This is left foot contusion, plantar puncture wound Diagnosis Primary Impression: Contusion of left foot Additional Impression: Puncture wound of plantar aspect of left foot Referrals: Branch Service Associate Patient Instructions: General Instructions Additional Instruction: Please return to emergency department if your symptoms return or worsen. Follow up with your primary care provider. Take medications as prescribed. Follow up with podiatry Friday as well as your doctor.. Diclofenac and Cipro. [place] for worsening signs of infection which include increased redness, increased warmth, purulent drainage, increased swelling or streaking. Med/Other Pt SpecificInfo: Prescription(s) given Disposition: 01 DISCHARGE HOME Condition: Stable Leland Torres Oct 19, 2016 19:24
[2016-10-19] MEDS ORDERED: CIPR-9 PO (19:25)
[2016-10-19] MEDS ORDERED: DICL50TA3 PO (19:25)
[2016-10-19] MEDS ORDERED: CIPROFLOXACIN 500 MG TAB PO ONE (19:30)
[2016-10-19 19:40] VITALS: BP 123/65
--- NOTE | 2016-10-19 19:47 | RADRPT ---
EXAM DATE/TIME: 10/19/2016 18:17 [place] COMPARISON: No previous studies available for comparison. INDICATIONS : Left foot pain, stepped on piece of plastic today. MEDICAL HISTORY : None. SURGICAL HISTORY : None. ENCOUNTER: Initial ACUITY: 1 day PAIN SCORE: 8/10 LOCATION: Left foot, medial plantar surface. FINDINGS: Three view examination of the left foot demonstrates no soft tissue swelling, dislocation, or fractur e. The tarsal bones appear intact. The interphalangeal and metatarsophalangeal joints are intact. Small plantar calcaneal spur.. Bony mineralization is normal. CONCLUSION: Osseous structures are grossly intact. No radiopaque foreign bodies seen. Deejay Edmonds MD on October 19, 2016 at 19:45 Board Certified Radiologist. This report was verified electronically.
== END 2016-10-19 19:51 | disposition home or self-care (01) ==
LOC: NETRI 16:43
DX: S90.32XA Contusion of left foot, initial encounter (principal); S91.332A Puncture wound without foreign body, left foot, initial encounter; W22.09XA Striking against other stationary object, initial encounter
CPT/HCPCS: 73630; 99283; E0113